=== PATIENT | female | born 1950 | race Caucasian/White ===

== ENCOUNTER 2016-05-31 11:45 | Emergency (ER) | payer BC | END 2016-05-31 13:44 | disposition home or self-care (01) | LOC: ER1 11:45 | DX: S39.012A Strain of muscle, fascia and tendon of lower back, initial encounter (principal); I10 Essential (primary) hypertension; Z79.899 Other long term (current) drug therapy; X58.XXXA Exposure to other specified factors, initial encounter | CPT/HCPCS: 81001; 96372; 99283; J1100; J1885 ==

== ENCOUNTER 2020-03-26 16:23 | Emergency (ER) | payer MEDICARE, OTHER ==
[~2020-03-26] VITALS: Ht 170.2 cm; Wt 95.3 kg
[2020-03-26 19:01] LABS: HEMOGLOBIN 14.1 gm/dl (12.3-15.3); RED BLOOD COUNT 4.88 M/UL (4.00-5.10)
[2020-03-26 19:29] LABS: BUN/CREATININE RATIO 21 (0-10)
== END 2020-03-26 23:30 | disposition home or self-care (01) ==
LOC: ER1 16:23
PROVIDERS: Physician Assistant
DX: R00.2 Palpitations (principal); I10 Essential (primary) hypertension; I48.91 Unspecified atrial fibrillation; Z86.711 Personal history of pulmonary embolism; Z86.718 Personal history of other venous thrombosis and embolism; Z79.01 Long term (current) use of anticoagulants
CPT/HCPCS: 71045; 80053; 82140; 82550; 82553; 83735; 83874; 83880; 84439; 84443; 84484; 85025; 85379; 85610; 85730; 93005; 99285